=== PATIENT | female | born 1935 | race Caucasian/White ===

== ENCOUNTER 2016-05-03 09:19 | Inpatient (IN) | payer OTHER ==
[~2016-05-03] VITALS: Ht 162.6 cm; Wt 69.5 kg
--- NOTE | 2016-05-03 10:18 | DIAGNOSTIC IMAGING REPORT ---
PROCEDURE: XR CHEST 2 VIEW INDICATION: COUGH TECHNIQUE: PA and lateral views. COMPARISON: None. FINDINGS: Lungs are clear. Heart and mediastinum are normal. Thorax is normal. IMPRESSION: 1. Negative chest.
--- NOTE | 2016-05-03 13:14 | DIAGNOSTIC IMAGING REPORT ---
PROCEDURE: CTA THORAX WITH CONTRAST INDICATION: Shortness of breath, elevated D-dimer. Initial encounter. TECHNIQUE: 100 ml of Isovue 370 was injected intravenously and axial images were obtained of the entire thorax with 3D sagittal and coronal MIP reconstructions. COMPARISON: Chest x-ray 05/03/2016. FINDINGS: No evidence of pulmonary emboli. Mild emphysematous changes. Lungs are clear. Mild hilar adenopathy bilaterally. No effusion. Mild atherosclerosis of the aorta. No aortic dissection or aneurysm. Minor coronary atherosclerosis. Normal heart size. Hepatic steatosis. Mild bilateral hydronephrosis. Mild degenerative changes of the spine. IMPRESSION: 1. No evidence of pulmonary emboli 2. Mild emphysema 3. Hepatic steatosis 4. Mild bilateral hydronephrosis. Recommend CT scan abdomen pelvis without contrast 5. Results discussed with Dr. Moore
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
--- NOTE | 2016-05-03 15:14 | ED ORDER SUMMARY ---
..... Patient: AD KAN OrderSheet [facility] VisitID: [id number] [place] [address] 80y, F Registration Date/Time: 05/03/2016 ORDER SHEET Weight: 65.7 kg (stated) Allergies: No Known Drug Allergy GENERAL ORDERS: Chest 2V Urgent (09:47 05/03/2016 PHutchinson DO) (Ack 9:54 RKaruga) (10:13 LWhalen R.N.) Refrigeration Engineering Teacher (Continuous) (:05/03/2016 PHutchinson DO) (10:13 LWhalen R.N.) UA-Culture if indicated Urgent (:05/03/2016 PHutchinson DO) (Ack 9:54 RKaruga) (10:36 LWhalen R.N.) Cardiac Panel Stat (:05/03/2016 PHutchinson DO) (Ack 9:54 RKaruga) (12:14 LSullivan R.N.) BNP Urgent (:05/03/2016 PHutchinson DO) (Ack 9:54 RKaruga) (12:14 LSullivan R.N.) D-Dimer Urgent (:05/03/2016 PHutchinson DO) (Ack 9:54 RKaruga) (12:14 LSullivan R.N.) Amylase Urgent (:05/03/2016 PHutchinson DO) (Ack 9:54 RKaruga) (12:14 LSullivan R.N.) PT with INR Urgent (:48 05/03/2016 PHutchinson DO) (Ack 9:54 RKaruga) (12:14 LSullivan R.N.) TSH Urgent (:05/03/2016 PHutchinson DO) (Ack 9:54 RKaruga) (12:14 LSullivan R.N.) Oxygen (2 L/min) (NC) (09:48 05/03/2016 PHutchinson DO) (10:13 LWhalen R.N.) Pulse oximeter (:48 05/03/2016 PHutchinson DO) (10:13 LWhalen R.N.) EKG - ER Stat (09:48 05/03/2016 PHutchinson DO) (Ack 10:00 RKaruga) (10:13 LWhalen R.N.) Vitals (09:48 05/03/2016 PHutchinson DO) (10:13 LWhalen R.N.) Old Records (from [facility] - visits 2 days ago) (09:48 05/03/2016 PHutchinson DO) (Ack 9:54 RKaruga) PCT (Procalcitonin) Urgent (09:50 05/03/2016 PHutchinson DO) ([facility]ck 9:54 [facility]) (12:14 LSullivan R.N.) Lactate, Serum Urgent (09:50 05/03/2016 PHutchinson DO) (Ack 9:54 RKaruga) (12:14 LSullivan R.N.) CTA Thorax w Cont (No) (N/A) (elevated d-dimer) Urgent (11:02 05/03/2016 PHutchinson DO) ([facility]ck 11:[facility] (12:38 [facility]) CT Abd/Pel wo Cont Urgent (13:49 05/03/2016 PHutchinson DO) (Ack 13:53 [facility]) (16:26 MCabell) MEDICATION ORDERS: IV FLUIDS: IV NS : initial bolus 500 mL (1000 mL/hr), then 250 mL/hr for X4 (NOW) (09:47 05/03/2016 PHutchinson DO) (10:37 LWhalen R.N.) Benadryl IV 12.5 mg (NOW) (09:48 05/03/2016 PHutchinson DO) (10:37 LWhalen R.N.) Solu-MEDROL IV 125 mg (NOW) (09:48 05/03/2016 PHutchinson DO) (10:38 LWhalen R.N.) Levaquin IV 500 mg/100mL (NOW) (15:17 05/03/2016 PHutchinson DO) (Cancelled: Other15:18 PHutchinson DO) Levaquin IV 500 mg/100mL (NOW) (15:18 05/03/2016 PHutchinson DO) (15:35 Malena FarrarNBecky) Flagyl IV 1 g (NOW) (16:50 05/03/2016 Carroll KONG) (18:33 Freddie Navarro) ORDER SHEET NOTES: [Electronically signed by Aj Landon R.N. (19:16 05/03/2016)] [Electronically signed by Jez Moore DO (22:17 05/03/2016)] [Electronically locked/signed by Aj Landon R.N. (19:16 05/03/2016)]
--- NOTE | 2016-05-03 15:14 | ED CLINICAL REPORT ---
Clinical Report - Physicians/Mid Levels [facility] [address] [place] [address] 05/03/2016 9:22 Patient: AD KAN Time Seen: 09:40. Arrived- By private vehicle. Historian- patient. HISTORY OF PRESENT ILLNESS Chief Complaint: WEAKNESS FACIAL AND HAND SWELLING. This started last night and is still present. It was gradual in onset and has been waxing/waning. At its maximum, severity described as moderate. When seen in the E.D., severity described as mild. Modifying factors- worsened by deep breaths. Relieved by rest. No headache or muscle aches. She has had fatigue and generalized weakness. No decreased urine output. (Was seen at [facility] and was transferred to [facility] for r/o sepsis. Patient was sent home from ER with diagnosis of a bladder infection. Has been taking the Cephalexin was started on the 05/01 and patient states went to bed last night and felt swelling of hands and feet and throat. States when she woke up she took a benadryl and is feeling a little bit better.). She has had fever (before antibiotics). She has had weakness.). Similar symptoms previously: Recent medical care: The patient was seen recently at another facility in the emergency department and a clinic. ( Pt seen at [facility] and then transferred to [facility] - pt was noted to have UTI, but no indication of sepsis). REVIEW OF SYSTEMS No fever, sore throat, sinus drainage, nasal congestion or difficulty breathing. No chest pain, abdominal pain, nausea, vomiting or diarrhea. No black stools, bloody stools, skin rash, back pain or calf pain. No headache. The patient has had a mild nonproductive cough. She has had difficulty with urination, along with urgency and frequency. No burning or pain with urination. No difficulty with ambulation. She has had depression (recent loss of her ). All systems otherwise negative, except as recorded above. PAST HISTORY PROBLEMS: Asthma. High blood pressure. Elevated Cholesterol. Diverticulitis. DVT - Deep Venous Thrombosis. GERD. SURGERIES: Back Surgery. Hemorrhoidectomy. Shoulder Surgery. SOCIAL HISTORY Former smoker. Occasional alcohol use. No drug use. Residence: [place], [place] and [place], [place] Visiting locally. She lives with a family member. ADDITIONAL NOTES The nursing notes have been reviewed. PHYSICAL EXAM Vital Signs: 05/03/2016 09:37 BP: 163/85. HR: 111. RR: 18. O2 saturation: 98%. Temp: 97.6 F. Appearance: Alert. No acute distress. Eyes: Eyes normal inspection. No scleral icterus or pale conjunctivae. ENT: Pharynx normal. No pharyngeal erythema or tonsillar exudate. The mucous membranes are not dry. Neck: Normal inspection. Neck supple. No JVD. CVS: Normal heart rate and rhythm. Heart sounds normal. Pulses normal. Respiratory: No respiratory distress. Breath sounds normal. Abdomen: No visible injury. Soft and nontender. Back: Normal inspection. Skin: Skin warm and dry. Normal skin color. Normal skin turgor. Extremities: Extremities exhibit normal ROM. Neuro: Oriented X 3. No motor deficit. LABS, X-RAYS, AND EKG EKG: EKG time: (10:19). Normal sinus rhythm. Rate: 75. Normal P waves. Normal JOSLYN. Normal QRS complex. Normal axis. Normal ST and T waves. The study has been interpreted contemporaneously by me. The EKG appears to be a good tracing. Rhythm Strip #1: Normal sinus rhythm. Regular rhythm. Narrow QRS complexes. No ectopy. Chest X-ray: No acute disease. Normal lung markings present. Normal heart size. Mediastinum normal. Great vessels normal. No infiltrate. Views: PA and lateral. Technique: good. The X-rays were interpreted contemporaneously by me. Abdominal CT: IMPRESSION: 1. Central pelvic inflammation, small amount of extraluminal gas, and small amount of free intraperitoneal hemorrhage. This appears to be causing high-grade obstruction of the right distal ureter and partial obstruction of the left. This process could be secondary to perforated, bleeding chronic diverticulosis or neoplasm. Retroperitoneal fibrosis, sclerosing mesenteritis is less likely given hemorrhage and perforation of hollow viscus. Either CT with IV and oral contrast, and/or surgical consult is recommended. 2. Hysterectomy. 3. Hepatic steatosis. Study type: abdomen and pelvis. Abdominal CT performed without contrast. The study was independently viewed by me, interpreted by the radiologist and discussed with the radiologist. Laboratory Tests: UA-Culture if indicated: (MUSTAPHA: 05/03/2016 10:30) ( [facility] 05/03/2016 10:52) Final results Test Result Flag Units (Reference) URINE COLOR YELLOW URINE APPEARANCE CLEAR URINE GLUCOSE NEGATIVE (NEGATIVE) URINE BILIRUBIN NEGATIVE (NEGATIVE) URINE KETONE NEGATIVE (NEGATIVE) URINE SPECIFIC GRAVITY <= 1.005 L (1.010-1.030) URINE PH 6.0 (5.0-8.0) URINE PROTEIN NEGATIVE (NEGATIVE) URINE UROBILINOGEN 0.2 EU/dL (0.2-1.0) URINE NITRITE NEGATIVE (NEGATIVE) URINE BLOOD NEGATIVE (NEGATIVE) URINE LEUK ESTERASE POSITIVE (NEGATIVE) URINE RBC NONE SEEN rbc/hpf (0-1) URINE WBC 1-3 wbc/hpf (0-1) URINE EPITHELIAL CELLS 3-5 EPI/hpf (0-5) URINE BACTERIA TRACE (<1+) (NONE SEEN) URINE COMMENT CULTURE INDICATED 1mL SPECIMENURINE CULTURES ARE SET-UP BASED ON THE FOLLOWING CRITERIA:POSITIVE NITRITEPOSITIVE LEUKOCYTE ESTERASEGREATER THAN 10 WHITE BLOOD CELLSMODERATE (2+) OR GREATER BACTERIA CBC w Diff: (MUSTAPHA: 05/03/2016 10:25) ( [facility] 05/03/2016 10:40) Final results Test Result Flag Units (Reference) WHITE BLOOD COUNT 9.4 K/uL (4.5-11.5) RED BLOOD COUNT 3.37 L M/uL (4.00-5.20) HEMOGLOBIN 10.0 L gm/dL (12.0-16.0) HEMATOCRIT 30.5 L % (36.0-46.0) MEAN CELL VOLUME 91 fL (80-100) MEAN CORPUSCULAR HGB 30 pg (26-34) MEAN CORPUSCULAR HGB CONC 33 g/dL (31-37) RED CELL DISTRIBUTION WIDTH 15.7 H % (11.6-14.8) PLATELET COUNT 425 H K/uL (150-400) NEUTROPHIL % 82.6 H % (50-75) LYMPH % 11.3 L % (25-40) MONO % 5.1 % (3-14) EOSINOPHIL % 0.7 % (0-4) BASOPHIL % 0.3 % (0-2) PT with INR: (MUSTAPHA: 05/03/2016 10:25) ( [facility] 05/03/2016 10:42) Final results Test Result Flag Units (Reference) INR 1.0 (0.8-1.2) Low Intensity Therapy: INR 1.5-2.0 PT range 18.5-23.1Mod.Intensity Therapy: INR 2.0-3.0 PT range 23.1-31.5High Intensity Therapy: INR 2.5-3.5 PT range 27.4-35.5High Intensity Therapy 2: INR 3.0-4.0 PT range 31.5-39.3 D-DIMER QUANTITATIVE 2.20 H ug/mLFEU (0.27-0.52) The primary value of this quantitative assay relates toits negative predictive value (i.e. exclusion) of pulmonaryembolism/deep vein thrombosis/DIC.Elevated levels of d-dimer may also occur with:, age, cancer, inflammation, liver disease,post-op, infection, hematoma, coronary disease, peripheralarteriopathy, bleeding disorders and thrombolytic treatment.Results should be correlated with other clinical andradiological data.Testing Methodology: Latex Immunoassay Lactate, Serum: (MUSTAPHA: 05/03/2016 10:25) ( [facility] 05/03/2016 11:29) Final results Test Result Flag Units (Reference) LACTIC ACID 1.1 mmol/L (0.4-2.0) [id number]: (MUSTAPHA: 05/03/2016 10:25) ( [facility] 05/03/2016 11:14) Final results Test Result Flag Units (Reference) PROCALCITONIN <0.5 ng/mL (0-0.5) PCT Concentration: Interpretation : Risk/option for action PCT <=0.5 ng/mL : Systemic : Low risk forinfection(sepsis): progression to severeis not likely. : systemic infection.Local bacterial : CAUTION-PCT levelsinfection is : below 0.5 ng/mL do notpossible. : exclude an infection,because localizedinfections (withoutsystemic signs) may beassociated with suchlow levels. If PCT ismeasured very earlyafter a bacterialchallenge (usually <6hours), these valuesmay still be low. Inthis case PCT shouldbe re-assessed 6-24hours later. PCT >0.5 and : Systemic infection: Moderate risk for<= 2 ng/mL : (sepsis) is : progression to severepossible, but : systemic infection.other conditions : The patient should beare known to : closely monitoredelevate PCT. : both clinically andby re-assessing PCTwithin 6-24 hours. PCT > 2 ng/mL : Systemic infection: High risk for(sepsis) is likely: progression to severeunless other : systemic infection.causes are known. : PCT >= 10 ng/mL : Important systemic: High likelihood ofinflammatory : severe sepsis orresponse, almost : septic shock.exclusively due to:severe bacterial :sepsis or septic :shock. : BNP: (MUSTAPHA: 05/03/2016 10:25) ( Msg[facility]cvd 05/03/2016 10:55) Final results Test Result Flag Units (Reference) B-TYPE NATRIURETIC PEPTIDE 481 H pg/ml (5-100) CHEM 13 PANEL: (MUSTAPHA: 05/03/2016 10:25) ( MsgRcvd 05/03/2016 11:07) Final results Test Result Flag Units (Reference) GLUCOSE 115 H mg/dL (70-110) BUN 17 mg/dL (7-18) CREATININE 1.0 mg/dL (0.6-1.3) Estimated GFR 56.99 mL/min Estimated GFR- >60 mL/min Note: Persistent reduction over 3 months in eGFR<60 mL/min/1.73 m2 defines CKD. Patients with eGFR values>=60 mL/min/1.73 m2 may also have CKD if evidence ofpersistent proteinuria. Additional information may be foundat www.kidney.org. SODIUM 142 mmol/L (136-145) POTASSIUM 3.7 mmol/L (3.5-5.1) CHLORIDE 107 mmol/L (98-107) CARBON DIOXIDE 27 mmol/L (21-32) CALCIUM 8.7 mg/dL (8.5-10.1) TOTAL PROTEIN 6.9 g/dL (6.4-8.2) ALBUMIN 2.1 L g/dL (3.3-5.0) BILIRUBIN, TOTAL 0.3 mg/dL (0.0-1.0) ALKALINE PHOSPHATASE 108 U/L (46-116) AST (SGOT) 23 U/L (15-37) ALT (SGPT) 20 U/L (12-78) CPK 41 U/L (24-260) AMYLASE 32 U/L (25-115) TROPONIN I <0.05 ng/mL (0.00-1.5) TROPONIN REFERENCE RANGE:<0.1 NEGATIVE0.1-1.5 INDETERMINANT>1.5 POSITIVE THYROID STIMULATING HORMONE 1.617 uIU/mL (0.30-3.74) MAGNESIUM 2.1 mg/dL (1.8-2.4) . Pulse Oximetry: 05/03/2016 09:37 O2 saturation: 98%. (FIO2 - room air). Interpretation: normal. PROGRESS AND PROCEDURES Course of Care: Normal Saline 1 liter IVPB given. Benadryl 12.5 mg IVP given. Levofloxacin 500mg IVPB given. Solu-Medrol 125 mg IVP given. Flagyl 1gm IVPB given. Patient is stable. Physical exam findings are improved. Symptoms better. Discussed case with health care provider ([employer]). Reviewed test results. Agreed upon treatment plan and decision to admit. Health care provider will see patient in ED. Discussed case with health care provider (Ben call placed 16:54). Reviewed test results. Agreed upon treatment plan. Patient/family counseled. Old ED and clinic records reviewed. Transition orders written. Disposition: Admitted to Acute Care. Condition: stable, guarded and improved. CLINICAL IMPRESSION Occult GI bleed. No hematemesis, hematochezia, melena or hypotension. Acute diverticulitis of the colon with perforation, bleeding and obstruction. Essential hypertension. Moderate anemia. Possible acute urinary tract infection with cystitis. Moderate to high grade ureteral obstruction bilaterally. CHF - chronic. INSTRUCTIONS Your Current Medications: CONTINUE TAKING THE FOLLOWING MEDICATIONS: Albuterol Sulfate Inhalation. Benadryl Allergy Oral. Calcium & Magnesium Carbonates Oral. Cephalexin Oral. Lipitor Oral. Magnesium Chloride Oral. Melatonin Oral. NexIUM Oral. Vit D-Vit E-Safflower Oil External. Follow-up: Screening today revealed the patient's blood pressure to be in the hypertensive range. The patient was admitted and blood pressure will be managed during the admission. (Electronically signed by Jez Moore DO 05/03/2016 22:17)
--- NOTE | 2016-05-03 15:14 | ED ORDER SUMMARY ---
..... Patient: AD KAN OrderSheet [facility] VisitID: [id number] [place] [address] 80y, F Registration Date/Time: 05/03/2016 ORDER SHEET Weight: 65.7 kg (stated) Allergies: No Known Drug Allergy GENERAL ORDERS: Chest 2V Urgent (09:47 05/03/2016 PHutchinson DO) (Ack 9:54 RKaruga) (10:13 LWhalen R.N.) Stream Control Officer (Continuous) (:05/03/2016 PHutchinson DO) (10:13 LWhalen R.N.) UA-Culture if indicated Urgent (:05/03/2016 PHutchinson DO) (Ack 9:54 RKaruga) (10:36 LWhalen R.N.) Cardiac Panel Stat (:05/03/2016 PHutchinson DO) (Ack 9:54 RKaruga) (12:14 LSullivan R.N.) BNP Urgent (:05/03/2016 PHutchinson DO) (Ack 9:54 RKaruga) (12:14 LSullivan R.N.) D-Dimer Urgent (:05/03/2016 PHutchinson DO) (Ack 9:54 RKaruga) (12:14 LSullivan R.N.) Amylase Urgent (:05/03/2016 PHutchinson DO) (Ack 9:54 RKaruga) (12:14 LSullivan R.N.) PT with INR Urgent (:48 05/03/2016 PHutchinson DO) (Ack 9:54 RKaruga) (12:14 LSullivan R.N.) TSH Urgent (:05/03/2016 PHutchinson DO) (Ack 9:54 RKaruga) (12:14 LSullivan R.N.) Oxygen (2 L/min) (NC) (09:48 05/03/2016 PHutchinson DO) (10:13 LWhalen R.N.) Pulse oximeter (:48 05/03/2016 PHutchinson DO) (10:13 LWhalen R.N.) EKG - ER Stat (09:48 05/03/2016 PHutchinson DO) (Ack 10:00 RKaruga) (10:13 LWhalen R.N.) Vitals (09:48 05/03/2016 PHutchinson DO) (10:13 LWhalen R.N.) Old Records (from [facility] - visits 2 days ago) (09:48 05/03/2016 PHutchinson DO) (Ack 9:54 RKaruga) PCT (Procalcitonin) Urgent (09:50 05/03/2016 PHutchinson DO) ([facility]ck 9:54 [facility]) (12:14 LSullivan R.N.) Lactate, Serum Urgent (09:50 05/03/2016 PHutchinson DO) (Ack 9:54 RKaruga) (12:14 LSullivan R.N.) CTA Thorax w Cont (No) (N/A) (elevated d-dimer) Urgent (11:02 05/03/2016 PHutchinson DO) (Ack 11:06 [facility]) (12:38 [facility] CT Abd/Pel wo Cont Urgent (13:49 05/03/2016 PHutchinson DO) (Ack 13:53 [facility]) (16:26 MCabell) MEDICATION ORDERS: IV FLUIDS: IV NS : initial bolus 500 mL (1000 mL/hr), then 250 mL/hr for X4 (NOW) (09:47 05/03/2016 PHutchinson DO) (10:37 LWhalen R.N.) Benadryl IV 12.5 mg (NOW) (09:48 05/03/2016 PHutchinson DO) (10:37 LWhalen R.N.) Solu-MEDROL IV 125 mg (NOW) (09:48 05/03/2016 PHutchinson DO) (10:38 LWhalen R.N.) Levaquin IV 500 mg/100mL (NOW) (15:17 05/03/2016 PHutchinson DO) (Cancelled: Other15:18 PHutchinson DO) Levaquin IV 500 mg/100mL (NOW) (15:18 05/03/2016 PHutchinson DO) (15:35 Malena FarrarNBecky) Flagyl IV 1 g (NOW) (16:50 05/03/2016 Carroll KONG) (18:33 Freddie Navarro) ORDER SHEET NOTES: [Electronically signed by Aj Landon R.N. (19:16 05/03/2016)] [Electronically signed by Jez Moore DO (22:17 05/03/2016)] [Electronically locked/signed by Aj Landon R.N. (19:16 05/03/2016)]
--- NOTE | 2016-05-03 15:14 | ED CLINICAL REPORT ---
Clinical Report - Physicians/Mid Levels [facility] [address] [place] [address] 05/03/2016 9:22 Patient: AD KAN Time Seen: 09:40. Arrived- By private vehicle. Historian- patient. HISTORY OF PRESENT ILLNESS Chief Complaint: WEAKNESS FACIAL AND HAND SWELLING. This started last night and is still present. It was gradual in onset and has been waxing/waning. At its maximum, severity described as moderate. When seen in the E.D., severity described as mild. Modifying factors- worsened by deep breaths. Relieved by rest. No headache or muscle aches. She has had fatigue and generalized weakness. No decreased urine output. (Was seen at [facility] and was transferred to [facility] for r/o sepsis. Patient was sent home from ER with diagnosis of a bladder infection. Has been taking the Cephalexin was started on the 05/01 and patient states went to bed last night and felt swelling of hands and feet and throat. States when she woke up she took a benadryl and is feeling a little bit better.). She has had fever (before antibiotics). She has had weakness.). Similar symptoms previously: Recent medical care: The patient was seen recently at another facility in the emergency department and a clinic. ( Pt seen at [facility] and then transferred to [facility] - pt was noted to have UTI, but no indication of sepsis). REVIEW OF SYSTEMS No fever, sore throat, sinus drainage, nasal congestion or difficulty breathing. No chest pain, abdominal pain, nausea, vomiting or diarrhea. No black stools, bloody stools, skin rash, back pain or calf pain. No headache. The patient has had a mild nonproductive cough. She has had difficulty with urination, along with urgency and frequency. No burning or pain with urination. No difficulty with ambulation. She has had depression (recent loss of her ). All systems otherwise negative, except as recorded above. PAST HISTORY PROBLEMS: Asthma. High blood pressure. Elevated Cholesterol. Diverticulitis. DVT - Deep Venous Thrombosis. GERD. SURGERIES: Back Surgery. Hemorrhoidectomy. Shoulder Surgery. SOCIAL HISTORY Former smoker. Occasional alcohol use. No drug use. Residence: [place], [place] and [place], [place] Visiting locally. She lives with a family member. ADDITIONAL NOTES The nursing notes have been reviewed. PHYSICAL EXAM Vital Signs: 05/03/2016 09:37 BP: 163/85. HR: 111. RR: 18. O2 saturation: 98%. Temp: 97.6 F. Appearance: Alert. No acute distress. Eyes: Eyes normal inspection. No scleral icterus or pale conjunctivae. ENT: Pharynx normal. No pharyngeal erythema or tonsillar exudate. The mucous membranes are not dry. Neck: Normal inspection. Neck supple. No JVD. CVS: Normal heart rate and rhythm. Heart sounds normal. Pulses normal. Respiratory: No respiratory distress. Breath sounds normal. Abdomen: No visible injury. Soft and nontender. Back: Normal inspection. Skin: Skin warm and dry. Normal skin color. Normal skin turgor. Extremities: Extremities exhibit normal ROM. Neuro: Oriented X 3. No motor deficit. LABS, X-RAYS, AND EKG EKG: EKG time: (10:19). Normal sinus rhythm. Rate: 75. Normal P waves. Normal JOSLYN. Normal QRS complex. Normal axis. Normal ST and T waves. The study has been interpreted contemporaneously by me. The EKG appears to be a good tracing. Rhythm Strip #1: Normal sinus rhythm. Regular rhythm. Narrow QRS complexes. No ectopy. Chest X-ray: No acute disease. Normal lung markings present. Normal heart size. Mediastinum normal. Great vessels normal. No infiltrate. Views: PA and lateral. Technique: good. The X-rays were interpreted contemporaneously by me. Abdominal CT: IMPRESSION: 1. Central pelvic inflammation, small amount of extraluminal gas, and small amount of free intraperitoneal hemorrhage. This appears to be causing high-grade obstruction of the right distal ureter and partial obstruction of the left. This process could be secondary to perforated, bleeding chronic diverticulosis or neoplasm. Retroperitoneal fibrosis, sclerosing mesenteritis is less likely given hemorrhage and perforation of hollow viscus. Either CT with IV and oral contrast, and/or surgical consult is recommended. 2. Hysterectomy. 3. Hepatic steatosis. Study type: abdomen and pelvis. Abdominal CT performed without contrast. The study was independently viewed by me, interpreted by the radiologist and discussed with the radiologist. Laboratory Tests: UA-Culture if indicated: (MUSTAPHA: 05/03/2016 10:30) ( [facility] 10[facility]52) Final results Test Result Flag Units (Reference) URINE COLOR YELLOW URINE APPEARANCE CLEAR URINE GLUCOSE NEGATIVE (NEGATIVE) URINE BILIRUBIN NEGATIVE (NEGATIVE) URINE KETONE NEGATIVE (NEGATIVE) URINE SPECIFIC GRAVITY <= 1.005 L (1.010-1.030) URINE PH 6.0 (5.0-8.0) URINE PROTEIN NEGATIVE (NEGATIVE) URINE UROBILINOGEN 0.2 EU/dL (0.2-1.0) URINE NITRITE NEGATIVE (NEGATIVE) URINE BLOOD NEGATIVE (NEGATIVE) URINE LEUK ESTERASE POSITIVE (NEGATIVE) URINE RBC NONE SEEN rbc/hpf (0-1) URINE WBC 1-3 wbc/hpf (0-1) URINE EPITHELIAL CELLS 3-5 EPI/hpf (0-5) URINE BACTERIA TRACE (<1+) (NONE SEEN) URINE COMMENT CULTURE INDICATED 1mL SPECIMENURINE CULTURES ARE SET-UP BASED ON THE FOLLOWING CRITERIA:POSITIVE NITRITEPOSITIVE LEUKOCYTE ESTERASEGREATER THAN 10 WHITE BLOOD CELLSMODERATE (2+) OR GREATER BACTERIA CBC w Diff: (MUSTAPHA: 05/03/2016 10:25) ( [facility]03[facility] 10:40) Final results Test Result Flag Units (Reference) WHITE BLOOD COUNT 9.4 K/uL (4.5-11.5) RED BLOOD COUNT 3.37 L M/uL (4.00-5.20) HEMOGLOBIN 10.0 L gm/dL (12.0-16.0) HEMATOCRIT 30.5 L % (36.0-46.0) MEAN CELL VOLUME 91 fL (80-100) MEAN CORPUSCULAR HGB 30 pg (26-34) MEAN CORPUSCULAR HGB CONC 33 g/dL (31-37) RED CELL DISTRIBUTION WIDTH 15.7 H % (11.6-14.8) PLATELET COUNT 425 H K/uL (150-400) NEUTROPHIL % 82.6 H % (50-75) LYMPH % 11.3 L % (25-40) MONO % 5.1 % (3-14) EOSINOPHIL % 0.7 % (0-4) BASOPHIL % 0.3 % (0-2) PT with INR: (MUSTAPHA: 05/03/2016 10:25) ( [facility] 05/03/2016 10:42) Final results Test Result Flag Units (Reference) INR 1.0 (0.8-1.2) Low Intensity Therapy: INR 1.5-2.0 PT range 18.5-23.1Mod.Intensity Therapy: INR 2.0-3.0 PT range 23.1-31.5High Intensity Therapy: INR 2.5-3.5 PT range 27.4-35.5High Intensity Therapy 2: INR 3.0-4.0 PT range 31.5-39.3 D-DIMER QUANTITATIVE 2.20 H ug/mLFEU (0.27-0.52) The primary value of this quantitative assay relates toits negative predictive value (i.e. exclusion) of pulmonaryembolism/deep vein thrombosis/DIC.Elevated levels of d-dimer may also occur with:, age, cancer, inflammation, liver disease,post-op, infection, hematoma, coronary disease, peripheralarteriopathy, bleeding disorders and thrombolytic treatment.Results should be correlated with other clinical andradiological data.Testing Methodology: Latex Immunoassay Lactate, Serum: (MUSTAPHA: 05/03/2016 10:25) ( [facility] 05/03/2016 11:29) Final results Test Result Flag Units (Reference) LACTIC ACID 1.1 mmol/L (0.4-2.0) [id number]: (MUSTAPHA: 05/03/2016 10:25) ( [facility] 05/03/2016 11:14) Final results Test Result Flag Units (Reference) PROCALCITONIN <0.5 ng/mL (0-0.5) PCT Concentration: Interpretation : Risk/option for action PCT <=0.5 ng/mL : Systemic : Low risk forinfection(sepsis): progression to severeis not likely. : systemic infection.Local bacterial : CAUTION-PCT levelsinfection is : below 0.5 ng/mL do notpossible. : exclude an infection,because localizedinfections (withoutsystemic signs) may beassociated with suchlow levels. If PCT ismeasured very earlyafter a bacterialchallenge (usually <6hours), these valuesmay still be low. Inthis case PCT shouldbe re-assessed 6-24hours later. PCT >0.5 and : Systemic infection: Moderate risk for<= 2 ng/mL : (sepsis) is : progression to severepossible, but : systemic infection.other conditions : The patient should beare known to : closely monitoredelevate PCT. : both clinically andby re-assessing PCTwithin 6-24 hours. PCT > 2 ng/mL : Systemic infection: High risk for(sepsis) is likely: progression to severeunless other : systemic infection.causes are known. : PCT >= 10 ng/mL : Important systemic: High likelihood ofinflammatory : severe sepsis orresponse, almost : septic shock.exclusively due to:severe bacterial :sepsis or septic :shock. : BNP: (MUSTAPHA: 05/03/2016 10:25) ( MsgRcvd 05/03/2016 10:55) Final results Test Result Flag Units (Reference) B-TYPE NATRIURETIC PEPTIDE 481 H pg/ml (5-100) CHEM 13 PANEL: (MUSTAPHA: 05/03/2016 10:25) ( MsgRcvd 05/03/2016 11:07) Final results Test Result Flag Units (Reference) GLUCOSE 115 H mg/dL (70-110) BUN 17 mg/dL (7-18) CREATININE 1.0 mg/dL (0.6-1.3) Estimated GFR 56.99 mL/min Estimated GFR- >60 mL/min Note: Persistent reduction over 3 months in eGFR<60 mL/min/1.73 m2 defines CKD. Patients with eGFR values>=60 mL/min/1.73 m2 may also have CKD if evidence ofpersistent proteinuria. Additional information may be foundat www.kidney.org. SODIUM 142 mmol/L (136-145) POTASSIUM 3.7 mmol/L (3.5-5.1) CHLORIDE 107 mmol/L (98-107) CARBON DIOXIDE 27 mmol/L (21-32) CALCIUM 8.7 mg/dL (8.5-10.1) TOTAL PROTEIN 6.9 g/dL (6.4-8.2) ALBUMIN 2.1 L g/dL (3.3-5.0) BILIRUBIN, TOTAL 0.3 mg/dL (0.0-1.0) ALKALINE PHOSPHATASE 108 U/L (46-116) AST (SGOT) 23 U/L (15-37) ALT (SGPT) 20 U/L (12-78) CPK 41 U/L (24-260) AMYLASE 32 U/L (25-115) TROPONIN I <0.05 ng/mL (0.00-1.5) TROPONIN REFERENCE RANGE:<0.1 NEGATIVE0.1-1.5 INDETERMINANT>1.5 POSITIVE THYROID STIMULATING HORMONE 1.617 uIU/mL (0.30-3.74) MAGNESIUM 2.1 mg/dL (1.8-2.4) . Pulse Oximetry: 05/03/2016 09:37 O2 saturation: 98%. (FIO2 - room air). Interpretation: normal. PROGRESS AND PROCEDURES Course of Care: Normal Saline 1 liter IVPB given. Benadryl 12.5 mg IVP given. Levofloxacin 500mg IVPB given. Solu-Medrol 125 mg IVP given. Flagyl 1gm IVPB given. Patient is stable. Physical exam findings are improved. Symptoms better. Discussed case with health care provider ([employer]). Reviewed test results. Agreed upon treatment plan and decision to admit. Health care provider will see patient in ED. Discussed case with health care provider (Ben call placed 16:54). Reviewed test results. Agreed upon treatment plan. Patient/family counseled. Old ED and clinic records reviewed. Transition orders written. Disposition: Admitted to Acute Care. Condition: stable, guarded and improved. CLINICAL IMPRESSION Occult GI bleed. No hematemesis, hematochezia, melena or hypotension. Acute diverticulitis of the colon with perforation, bleeding and obstruction. Essential hypertension. Moderate anemia. Possible acute urinary tract infection with cystitis. Moderate to high grade ureteral obstruction bilaterally. CHF - chronic. INSTRUCTIONS Your Current Medications: CONTINUE TAKING THE FOLLOWING MEDICATIONS: Albuterol Sulfate Inhalation. Benadryl Allergy Oral. Calcium & Magnesium Carbonates Oral. Cephalexin Oral. Lipitor Oral. Magnesium Chloride Oral. Melatonin Oral. NexIUM Oral. Vit D-Vit E-Safflower Oil External. Follow-up: Screening today revealed the patient's blood pressure to be in the hypertensive range. The patient was admitted and blood pressure will be managed during the admission. (Electronically signed by Jez Moore DO 05/03/2016 22:17)
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
--- NOTE | 2016-05-03 15:41 | DIAGNOSTIC IMAGING REPORT ---
PROCEDURE: CT ABDOMEN/PELVIS W/O CONTRAST INDICATION: ABNORMAL CTA THORAX WITH HYDRONEPHROSIS TECHNIQUE: Axial CT images were obtained through the abdomen and pelvis without IV contrast. Coronal and sagittal reformations were created. COMPARISON: CTA of the chest 05/03/2016 FINDINGS: Moderate diffuse hepatic hypodensity. Normal gallbladder. Normal adrenal glands, spleen, pancreas, and abdominal aortic caliber with moderate atherosclerosis. Stomach and upper bowel loops are within normal limits. Moderate to severe right hydronephrosis and moderate left hydronephrosis. Severe right hydroureter and moderate left hydroureter to the level of the pelvic inlet. There is a small amount of high density fluid adjacent to the tip of the liver consistent with blood. There is extensive sigmoid diverticulosis. In the central upper pelvis, there is an area approximately 10 cm of moderate inflammatory change as well as punctate foci of extraluminal gas (series 3 image 60). More caudally in the pelvis, there is high density fluid layering consistent with blood. The right distal ureter abruptly terminates just above and inflamed a segment of distal sigmoid/proximal rectum to the right of midline. This segment of bowel demonstrates diffuse luminal narrowing and moderate adjacent inflammation. The distal left ureter is seen coursing towards and into the bladder. The right distal ureter is not convincingly visualized. Urinary bladder is decompressed. Uterus is surgically absent. No visible pelvic adenopathy or suspicious mass. Degenerative changes in the right hip and lower lumbar spine. IMPRESSION: 1. Central pelvic inflammation, small amount of extraluminal gas, and small amount of free intraperitoneal hemorrhage. This appears to be causing high- grade obstruction of the right distal ureter and partial obstruction of the left. This process could be secondary to perforated, bleeding chronic diverticulosis or neoplasm. Retroperitoneal fibrosis, sclerosing mesenteritis is less likely given hemorrhage and perforation of hollow viscus. Either CT with IV and oral contrast, and/or surgical consult is recommended. 2. Hysterectomy. 3. Hepatic steatosis. 4. Discussed with Dr. Moore in the emergency room. All CT scans at this facility use dose modulation, iterative reconstruction, and/or weight-based dosing when appropriate to reduce radiation dose to as low as reasonably achievable.
[2016-05-03 18:54] VITALS: BP 135/92
--- NOTE | 2016-05-03 19:01 | History & Physical Report ---
Information Source Information Source: Self Reliability: Good History Chief Complaint generalized swelling and difficulty urinating History of Present Illness Patient is a 80 year old female with a pmh of hypertension, diverticulitis that is presenting with a vague feeling of general body swelling and malaise. Patient has been dealing with the recent of her , patient has been traveling back and forth from [place] to [place] to arrange for the . Patient during this time was under a great deal of stress and had difficulty urinating lately. Patient went to an urgent care center for possible UTI and was prescribed antibiotics. Patient took the antibiotics and the next day had feeling or pruritis and generalized swelling. Patient came to the ER under the impression she had an allergic reaction. Patient was evaluated in the ER and the patient had various tests done including a ct scan of the abdomen. Patient was found to have diverticulitis with micro perforations and blood in the pelvic recess. Patients diverticulitis was seen to be causing compression like symptoms on the patients bladder which in turn may be causing this patients bladder dysfunction. Patient will be admitted for diverticulitis. Patient History 1. Diverticulitis of intestine with perforation with bleeding 2. Anemia Social History Patient currently lives with her niece. Patient is retired, she does not smoke, drink or use illicit substances. Patient has a PCP in [facility] where she is from. Family History Family history was reviewed; no changes noted. Medications and Allergies Medications Home Medications Melatonin Atorvastatin Protonix Current Medications Sig/Darryl Start time Last Medication Dose Route Stop Time Status Admin Metronidazole/Sodium 100 ML 1730 05/04 1730 CAN Chloride IV 05/04 1800 Metronidazole/Sodium 100 ML Q8H 05/04 0800 AC 05/04 Chloride IV 1555 Pantoprazole Sodium 40 MG DAILY@0600 05/04 0600 AC 05/04 IV 0601 Lactobacillus 1 TAB TID 05/03 2200 AC 05/04 PO 1347 Ciprofloxacin 500 MG BID 05/03 2100 AC 05/04 PO 0958 Diphenhydramine HCl 25 MG QHS PRN 05/03 1945 AC 05/03 IV 2119 Acetaminophen 650 MG Q6H PRN 05/03 1900 AC PO Morphine Sulfate 1 MG Q4H PRN 05/03 1900 AC 05/04 IV 0637 Sodium Chloride 1,000 ML ASDIRECTED 05/03 1900 AC 05/04 IV 0913 Ondansetron HCl See Dose Q4H PRN 05/03 1700 AC Insts (1) IV Dose Instructions: (1)Ondansetron HCl: 4 - 8 MG Allergies Coded Allergies: Cephalexin (Mild, C/O FACE+HAND SWELLING AFTER PO CEPHALEXIN 04/201605/03/16) Review of Systems Constitutional Weakness, Malaise. Denies: Fever, Chills, Sweats, Other. Eyes Denies: Pain, Vision Change, Conjunctival Inflammation, Eyelid Inflammation, Redness, Other. ENT Denies: Ear Pain, Ear Discharge, Nose Pain, Nasal Discharge, Nasal Congestion, Mouth Pain, Mouth Swelling, Throat Pain, Throat Swelling, Other. Respiratory Denies: Cough, Dry, SOB w/exertion, Wheezing, Hemoptysis, Pleuritic Pain, Sputum , Other. Cardiovascular Denies: Chest Pain, Palpitations, Orthopnea, PND, Edema, Light-headedness, Other. Gastrointestinal Denies: Nausea, Vomiting, Abdominal Pain, Diarrhea, Constipation, Melena, Hematochezia, Other. Genitourinary Frequency, Retention. Denies: Dysuria, Incontinence, Hematuria, Other. Musculoskeletal Denies: Neck Pain, Shoulder Pain, Arm Pain, Back Pain, Hand Pain, Leg Pain, Foot Pain, Other. Skin Denies: Rash, Lesions, Jaundice, Bruising, Other. Neurological Denies: Weakness, Numbness, Incoordination, Change in speech, Confusion, Seizures, Other. Physical Exam Vital Signs / I&Os Vital Signs Date Time Temp Pulse Resp B/P Pulse O2 O2 Flow FiO2 Ox Delivery Rate 05/04 1420 97.9 79 16 148/67 100 Room Air 05/04 1015 97.5 73 20 148/65 98 Room Air 05/04 0925 Room Air 05/04 0701 97.9 81 21 142/56 97 Room Air 05/04 0243 97.9 75 16 143/66 96 05/03 2253 97.9 74 16 170/65 98 05/03 1854 98.6 91 18 135/92 95 I&O 05/03 0800 05/03 1600 05/04 0000 Intake Total 0 Output Total 500 Balance -500 General Appearance Alert, Oriented X3, No acute distress HEENT Atraumatic, EOMI, Moist mucous membranes Lungs Clear to auscultation, Normal air movement Neck No JVD, No masses, No thyromegaly, No lymphadenopathy, 2+ carotid pulse wo bruit Cardiovascular Regular rate and rhythm, Normal S1 and S2, No murmurs, gallops, rubs Abdomen Soft, No guarding, No rebound, No masses, No hepatosplenomegaly Extremities No edema, Normal pulses, No tenderness, Strength = upper ext's, Strength = lower ext's Skin No Breakdown, No Significant Lesions Neurological Normal speech, Normal tone, Sensation intact, Cranial nerves intact , Strength 5/5 x4 ext's, No lateralizing signs Psych/Mental Status Mood normal LAB Results Laboratory Tests 05/04 0535 Chemistry Plasma Sodium (136 - 145 mmol/L) 144 Plasma Potassium (3.5 - 5.1 mmol/L) 4.2 Plasma Chloride (98 - 107 mmol/L) 109 CO2 (Enzymatic) (21 - 32 mmol/L) 24 BUN (7 - 18 mg/dL) 12 Creatinine (0.6 - 1.3 mg/dL) 0.9 Est GFR ( Amer) (mL/min) >60 Est GFR (Non-Af Amer) (mL/min) >60 Glucose (70 - 110 mg/dL) 132 Plasma Calcium (8.5 - 10.1 mg/dL) 8.2 Plasma Magnesium (1.8 - 2.4 mg/dL) 2.0 Total Bilirubin (0.0 - 1.0 mg/dL) 0.2 AST (15 - 37 U/L) 24 ALT (12 - 78 U/L) 23 Alkaline Phosphatase (46 - 116 U/L) 104 Total Protein (6.4 - 8.2 g/dL) 6.3 Albumin (3.3 - 5.0 g/dL) 2.0 Lipase (73 - 393 U/L) 109 Hematology WBC (4.5 - 11.5 K/uL) 8.4 RBC (4.00 - 5.20 M/uL) 3.34 Hgb (12.0 - 16.0 gm/dL) 9.8 Hct (36.0 - 46.0 %) 29.9 MCV (80 - 100 fL) 89 MCH (26 - 34 pg) 29 RDW (11.6 - 14.8 %) 15.8 Neut % (Auto) (50 - 75 %) 83.0 Lymph % (Auto) (25 - 40 %) 13.7 Dunn % (Auto) (3 - 14 %) 3.1 Eos % (Auto) (0 - 4 %) 0 Baso % (Auto) (0 - 2 %) 0.2 Plt Count, EDTA (150 - 400 K/uL) 445 PUBS MCHC (31 - 37 g/dL) 33 Assessment and Plan Problem List 1. Diverticulitis of intestine with perforation with bleeding Plan - radiolopgical evidence of diverticulitis with micro perforations - free blood in the pelvic recess - compression of the bladder due to the inflammation - will keep patient npo - will provide liberal iv fluids - will start the patient on cipro and flagyl - will continue to monitor cbc and electrolytes 2. Anemia Plan - stable - will continue to trend - most likely secondary to bleeding diverticula
--- NOTE | 2016-05-03 20:09 | NUR ---
PT ARRIVED AROUND 1900 VIA [facility] FROM ED. NO C/O PAIN OR NAUSEA. NO SOB. PT IS A&OX3, LS CTA AND BT ACTIVE. +1 EDEMA ON BLE'S. AMBULATES W/ SBA. FAMILY AT BESIDE. RESTING W/ CALL LIGHT IN REACH.
--- NOTE | 2016-05-03 22:18 | ED MED RECONCILIATION SUMMARY ---
Patient: AD KAN Medication Reconciliation Report [facility] VisitID: [id number] [address] [place] [address] 80y, F Registration Date/Time: 05/03/2016 Weight: 65.7 kg Height/Length: 63 in. BMI: 25.7 ALLERGIES: No Known Drug Allergy The patient's Home Medications are listed below: CONTINUE TAKING THE FOLLOWING MEDICATIONS: Albuterol Sulfate Inhalation Benadryl Allergy Oral Calcium & Magnesium Carbonates Oral Cephalexin Oral Lipitor Oral Magnesium Chloride Oral Melatonin Oral NexIUM Oral Vit D-Vit E-Safflower Oil External The source(s) of the original Home Medication information: Not obtained. The following Medications were given to the patient in the Emergency Department: IV NS IV Fluids bolus 0, then 1000 mL/hr, administered: 05/03/2016 10:32:00 AM Benadryl [IVP] IVP 12.5 mg, administered: 05/03/2016 10:32:00 AM SOLU-MEDROL [IVP] IVP 125 mg, administered: 05/03/2016 10:38:00 AM Levaquin [IVPB] IVPB bolus 0, then 500 mg 100 mL/hr, administered: 05/03/2016 3:35:00 PM Flagyl [IVPB] IVPB bolus 0, then 500 mg 200 mL/hr, administered: 05/03/2016 6:30:00 PM The following Medications were prescribed to the patient: None.
--- NOTE | 2016-05-03 22:18 | ED MAR SUMMARY ---
..... Medication Administration Record [facility] [address] [facility] [place] [address] Patient: AD KAN Visit ID: [id number] 80y, F Weight: 65.7 kg Height/Length: 63 in BMI: 25.7 ALLERGIES: No Known Drug Allergy Start 10:32 05/03/2016 Aj Landon R.N., Stop 15:44 05/03/2016 Aj Landon R.N. Medication Administered: IV NS (SALINE), Dose: IV Fluids over 1 hour(s), Rate: 1000 mL/hr, Dispensed: 1000 mL bag, Site: #1 right forearm. Medication Ordered: IV NS : initial bolus 500 mL (1000 mL/hr), then 250 mL/hr for X4 (NOW). Given 10:32 05/03/2016 Aj Landon R.N. Medication Administered: BENADRYL [IVP] (DIPHENHYDRAMINE HCL), Dose: 12.5 mg IVP over 2 minute(s), Site: #1 right forearm. Medication Ordered: Benadryl IV 12.5 mg (NOW). Given 10:38 05/03/2016 Aj Landon R.N. Medication Administered: SOLU-MEDROL [IVP] (METHYLPREDNISOLONE SODIUM SUCC), Dose: 125 mg IVP over 2 minute(s), Site: #1 right forearm. Medication Ordered: Solu-MEDROL IV 125 mg (NOW). Start 15:35 05/03/2016 Aj Landon R.N., Stop 18:43 05/03/2016 Aj Landon R.N. Medication Administered: LEVAQUIN [IVPB] (LEVOFLOXACIN), Dose: 500 mg IVPB over 1 hour(s), Rate: 100 mL/hr, Dispensed: 100 mL bag, Site: #1 right forearm. Medication Ordered: Levaquin IV 500 mg/100mL (NOW). Start 18:30 05/03/2016 Vandana Hickey R.N., Continued Upon Transfer 18:39 05/03/2016 Aj Landon R.N. Medication Administered: FLAGYL [IVPB] (METRONIDAZOLE IN NACL), Dose: 500 mg IVPB over 30 minute(s), Rate: 200 mL/hr, Dispensed: 100 mL bag, Site: #1 right forearm. Medication Ordered: Flagyl IV 1 g (NOW).
--- NOTE | 2016-05-03 22:18 | ED MED RECONCILIATION SUMMARY ---
Patient: AD KAN Medication Reconciliation Report [facility] VisitID: [id number] [address] [place] [address] 80y, F Registration Date/Time: 05/03/2016 Weight: 65.7 kg Height/Length: 63 in. BMI: 25.7 ALLERGIES: No Known Drug Allergy The patient's Home Medications are listed below: CONTINUE TAKING THE FOLLOWING MEDICATIONS: Albuterol Sulfate Inhalation Benadryl Allergy Oral Calcium & Magnesium Carbonates Oral Cephalexin Oral Lipitor Oral Magnesium Chloride Oral Melatonin Oral NexIUM Oral Vit D-Vit E-Safflower Oil External The source(s) of the original Home Medication information: Not obtained. The following Medications were given to the patient in the Emergency Department: IV NS IV Fluids bolus 0, then 1000 mL/hr, administered: 05/03/2016 10:32:00 AM Benadryl [IVP] IVP 12.5 mg, administered: 05/03/2016 10:32:00 AM SOLU-MEDROL [IVP] IVP 125 mg, administered: 05/03/2016 10:38:00 AM Levaquin [IVPB] IVPB bolus 0, then 500 mg 100 mL/hr, administered: 05/03/2016 3:35:00 PM Flagyl [IVPB] IVPB bolus 0, then 500 mg 200 mL/hr, administered: 05/03/2016 6:30:00 PM The following Medications were prescribed to the patient: None.
--- NOTE | 2016-05-03 22:18 | ED MAR SUMMARY ---
..... Medication Administration Record [facility] [address] [facility] [place] [address] Patient: AD KAN Visit ID: [id number] 80y, F Weight: 65.7 kg Height/Length: 63 in BMI: 25.7 ALLERGIES: No Known Drug Allergy Start 10:32 05/03/2016 Aj Landon R.N., Stop 15:44 05/03/2016 Aj Landon R.N. Medication Administered: IV NS (SALINE), Dose: IV Fluids over 1 hour(s), Rate: 1000 mL/hr, Dispensed: 1000 mL bag, Site: #1 right forearm. Medication Ordered: IV NS : initial bolus 500 mL (1000 mL/hr), then 250 mL/hr for X4 (NOW). Given 10:32 05/03/2016 Aj Landon R.N. Medication Administered: BENADRYL [IVP] (DIPHENHYDRAMINE HCL), Dose: 12.5 mg IVP over 2 minute(s), Site: #1 right forearm. Medication Ordered: Benadryl IV 12.5 mg (NOW). Given 10:38 05/03/2016 Aj Landon R.N. Medication Administered: SOLU-MEDROL [IVP] (METHYLPREDNISOLONE SODIUM SUCC), Dose: 125 mg IVP over 2 minute(s), Site: #1 right forearm. Medication Ordered: Solu-MEDROL IV 125 mg (NOW). Start 15:35 05/03/2016 Aj Landon R.N., Stop 18:43 05/03/2016 Aj Landon R.N. Medication Administered: LEVAQUIN [IVPB] (LEVOFLOXACIN), Dose: 500 mg IVPB over 1 hour(s), Rate: 100 mL/hr, Dispensed: 100 mL bag, Site: #1 right forearm. Medication Ordered: Levaquin IV 500 mg/100mL (NOW). Start 18:30 05/03/2016 Vandana Hickey R.N., Continued Upon Transfer 18:39 05/03/2016 Aj Landon R.N. Medication Administered: FLAGYL [IVPB] (METRONIDAZOLE IN NACL), Dose: 500 mg IVPB over 30 minute(s), Rate: 200 mL/hr, Dispensed: 100 mL bag, Site: #1 right forearm. Medication Ordered: Flagyl IV 1 g (NOW).
--- NOTE | 2016-05-03 22:18 | ED DISCHARGE INSTRUCTIONS ---
Patient: AD KAN General Instructions [facility] VisitID: [id number] [place] [address] 80y, F Registration Date/Time: 05/03/2016 Occult GI bleed. No hematemesis, hematochezia, melena or hypotension. Acute diverticulitis of the colon with perforation, bleeding and obstruction. Essential hypertension. Moderate anemia. Moderate to high grade ureteral obstruction bilaterally. CHF - chronic. INSTRUCTIONS Your Current Medications: CONTINUE TAKING THE FOLLOWING MEDICATIONS: Albuterol Sulfate Inhalation. Benadryl Allergy Oral. Calcium & Magnesium Carbonates Oral. Cephalexin Oral. Lipitor Oral. Magnesium Chloride Oral. Melatonin Oral. NexIUM Oral. Vit D-Vit E-Safflower Oil External. Follow-up: Screening today revealed the patient's blood pressure to be in the hypertensive range. The patient was admitted and blood pressure will be managed during the admission. ADDITIONAL INFORMATION High Blood Pressure -- To Be Confirmed [No Tx] Your blood pressure was higher today than normal. Sometimes anxiety or pain can cause a temporary rise in blood pressure that later returns to normal. If your blood pressure is high on one measurement, this does not mean that you have hypertension (a chronic illness). However, you must have your blood pressure measured again within the next few days to find out if its still high. A normal blood pressure is 120/80 or less. The first (top) number is the "systolic" pressure. The second (bottom) number is the "diastolic" pressure. Hypertension exists when either the top number is 140 or higher, OR the bottom number is 90 or higher on repeated measurements. Blood pressure in the range of 120-140 (systolic) or 80-89 (diastolic) is considered "pre-hypertension". This means your are at risk for getting hypertension. You should have regular blood pressure checks to be sure your blood pressure is not rising. Home Care: Measure your blood pressure on 3 different days and write down the results. This can be done at your doctor's office or this facility. Some pharmacies and grocery stores offer automated blood pressure machines for your use. Follow Up: If your blood pressure is "high" (over 120/80) on 2 out of 3 days, you will need to follow up with your doctor for further evaluation and treatment. DO NOT PUT THIS OFF! Untreated high blood pressure increases the risk for heart attack, also known as acute myocardial infarction, or AMI, and stroke. It is a treatable condition. Get Prompt Medical Attention if any of the following occur: Chest pain or shortness of breath Severe headache Throbbing or rushing sound in the ears Nosebleed Sudden severe abdominal pain Extreme drowsiness, confusion or fainting Dizziness or vertigo (dizziness with spinning sensation) Weakness of an arm or leg or one side of the face Difficulty with speech or vision You have been given the following additional information: Hypertension, To Be Confirmed (Electronically signed by Jez Moore DO 05/03/2016 22:17)
[2016-05-03 22:53] VITALS: BP 170/65
[2016-05-04 02:43] VITALS: BP 143/66
[2016-05-04] MEDS ORDERED: PROAIR HFA IN (04:51)
[2016-05-04] MEDS ORDERED: BENADRYL ALLERG25 M1 PO (04:51)
[2016-05-04] MEDS ORDERED: TUMS500 MG (04:52)
[2016-05-04] MEDS ORDERED: MAG6464 MG PO (04:54)
[2016-05-04] MEDS ORDERED: LIPITOR10 MG PO (04:54)
[2016-05-04] MEDS ORDERED: NEXIUM2.5 MG (04:55)
[2016-05-04] MEDS ORDERED: MELATONIN CR3 MG (04:55)
[2016-05-04 07:01] VITALS: BP 142/56
--- NOTE | 2016-05-04 09:30 | NUR ---
RECEIVED PT UP IN THE CHAIR, AWAKE, ALERT, ORIENTED, COHERENT, COOPERATIVE. V/S TAKEN AND RECORDED. ASSESSMENT DONE. PT DENIES ANY PAIN, N/V AT THIS TIME. SEEN AND EXAMINED BY DR HOPKINS DURING ROUNDS. DUE MEDS GIVEN. PT HAVE HAVE 1/3 A CUP OF ICE OR WATER ONLY PER SHIFT. PT UDNERSTOOD. ENC PT TO AMBULATE.
[2016-05-04 10:15] VITALS: BP 148/65
[2016-05-04 14:20] VITALS: BP 148/67
--- NOTE | 2016-05-04 17:24 | Progress Note ---
Subjective General Patient seen and examined. Patient has normal bowel function at the moment. Patient otherwise has no complaints. Constitutional Denies: Fever, Chills, Sweats, Weakness, Malaise, Other. Eyes Denies: Pain, Vision Change, Conjunctival Inflammation, Eyelid Inflammation, Redness, Other. ENT Denies: Ear Pain, Ear Discharge, Nose Pain, Nasal Discharge, Nasal Congestion, Mouth Pain, Mouth Swelling, Throat Pain, Throat Swelling, Other. Cardiovascular Denies: Chest Pain, Palpitations, Orthopnea, PND, Edema, Light-headedness, Other. Gastrointestinal Denies: Nausea, Vomiting, Abdominal Pain, Diarrhea, Constipation, Melena, Hematochezia, Other. Genitourinary Denies: Dysuria, Frequency, Incontinence, Hematuria, Retention, Other. Musculoskeletal Denies: Neck Pain, Shoulder Pain, Arm Pain, Back Pain, Hand Pain, Leg Pain, Foot Pain, Other. Skin Denies: Rash, Lesions, Jaundice, Bruising, Other. Neurological Denies: Weakness, Numbness, Incoordination, Change in speech, Confusion, Seizures, Other. Physical Exam Vital Signs / I&Os Vital Signs Date Time Temp Pulse Resp B/P Pulse O2 O2 Flow FiO2 Ox Delivery Rate 05/04 1420 97.9 79 16 148/67 100 Room Air 05/04 1015 97.5 73 20 148/65 98 Room Air 05/04 0925 Room Air 05/04 0701 97.9 81 21 142/56 97 Room Air 05/04 0243 97.9 75 16 143/66 96 05/03 2253 97.9 74 16 170/65 98 05/03 1854 98.6 91 18 135/92 95 I&O 05/03 0800 05/03 1600 05/04 0000 Intake Total 0 Output Total 500 Balance -500 General Appearance Alert, Oriented X3, No acute distress HEENT Atraumatic, Moist mucous membranes Lungs Clear to auscultation, Normal air movement Neck Supple, No JVD, No masses Cardiovascular Normal S1 and S2, No murmurs, gallops, rubs Abdomen Soft, No guarding, No rebound, No masses, No hepatosplenomegaly, - some tenderness to lower quadrants Extremities No clubbing, No edema, Normal pulses Skin No Breakdown, No Significant Lesions Neurological Normal speech, Normal tone, Sensation intact, Cranial nerves intact , Strength 5/5 x4 ext's, No lateralizing signs Psych/Mental Status Mood normal LAB Results Laboratory Tests 05/04 0535 Chemistry Plasma Sodium (136 - 145 mmol/L) 144 Plasma Potassium (3.5 - 5.1 mmol/L) 4.2 Plasma Chloride (98 - 107 mmol/L) 109 CO2 (Enzymatic) (21 - 32 mmol/L) 24 BUN (7 - 18 mg/dL) 12 Creatinine (0.6 - 1.3 mg/dL) 0.9 Est GFR ( Amer) (mL/min) >60 Est GFR (Non-Af Amer) (mL/min) >60 Glucose (70 - 110 mg/dL) 132 Plasma Calcium (8.5 - 10.1 mg/dL) 8.2 Plasma Magnesium (1.8 - 2.4 mg/dL) 2.0 Total Bilirubin (0.0 - 1.0 mg/dL) 0.2 AST (15 - 37 U/L) 24 ALT (12 - 78 U/L) 23 Alkaline Phosphatase (46 - 116 U/L) 104 Total Protein (6.4 - 8.2 g/dL) 6.3 Albumin (3.3 - 5.0 g/dL) 2.0 Lipase (73 - 393 U/L) 109 Hematology WBC (4.5 - 11.5 K/uL) 8.4 RBC (4.00 - 5.20 M/uL) 3.34 Hgb (12.0 - 16.0 gm/dL) 9.8 Hct (36.0 - 46.0 %) 29.9 MCV (80 - 100 fL) 89 MCH (26 - 34 pg) 29 RDW (11.6 - 14.8 %) 15.8 Neut % (Auto) (50 - 75 %) 83.0 Lymph % (Auto) (25 - 40 %) 13.7 Richardson % (Auto) (3 - 14 %) 3.1 Eos % (Auto) (0 - 4 %) 0 Baso % (Auto) (0 - 2 %) 0.2 Plt Count, EDTA (150 - 400 K/uL) 445 PUBS MCHC (31 - 37 g/dL) 33 Assessment and Plan Problem List 1. Diverticulitis of intestine with perforation with bleeding Plan - will continue with antibiotics - will monitor cbc daily - will obtain surgical consult 2. Anemia Plan - no major drops in hgb - will continue to monitor - transfuse less than 7
[2016-05-04 19:50] VITALS: BP 132/62
[2016-05-04 22:34] VITALS: BP 148/74
[2016-05-05 03:07] VITALS: BP 152/63
[2016-05-05 06:19] VITALS: BP 176/95
--- NOTE | 2016-05-05 08:25 | NUR ---
RECEDIVED PT IN BED, AWAKE,AELRT, ORIENTED, COHERENT, COOPERATIVE. V/S TAKEN AND RECORDED. ASSESSMENT DONE. PT DENIES ANY PAIN, HEADACHE, NO NAUSEA AND VOM ITING AT THIS TIME. THEN ASSSITED PT UP TO THE BATHROOM PT DID MORNING, [place], ORAL CARE HERSELF. THEN PT SAT UP IN THE CHIAR. INSTRUC PT TO AMBULATE. 1/3 CUP OF ICE OR WATER ONLY PER SHIFT. PT UNBDERSTOOD.
[2016-05-05 10:46] VITALS: BP 178/84
--- NOTE | 2016-05-05 14:30 | NUR ---
BP IS 161/74. DENIES HEADACHE, CHEST PAIN AT THIS TIME. " I TAKE HCTZ AT HOME" PT STATES. DR DALEY NOTIFIED.
[2016-05-05 14:40] VITALS: BP 161/74
[2016-05-05] MEDS ORDERED: HYDROCHLOROTHIA25 MG PO (15:29)
--- NOTE | 2016-05-05 17:50 | Progress Note ---
Subjective General Patient seen and examined. Patient is dong well and able to tolerate a diet. Patient has no other complaints this morning. Constitutional Denies: Fever, Chills, Sweats, Weakness, Malaise, Other. Eyes Denies: Pain, Vision Change, Conjunctival Inflammation, Eyelid Inflammation, Redness, Other. Respiratory Denies: Cough, Dry, SOB w/exertion, Wheezing, Hemoptysis, Pleuritic Pain, Sputum , Other. Cardiovascular Denies: Chest Pain, Palpitations, Orthopnea, PND, Edema, Light-headedness, Other. Gastrointestinal Denies: Nausea, Vomiting, Abdominal Pain, Diarrhea, Constipation, Melena, Hematochezia, Other. Genitourinary Denies: Dysuria, Frequency, Incontinence, Hematuria, Retention, Other. Musculoskeletal Denies: Neck Pain, Shoulder Pain, Arm Pain, Back Pain, Hand Pain, Leg Pain, Foot Pain, Other. Skin Denies: Rash, Lesions, Jaundice, Bruising, Other. Neurological Denies: Weakness, Numbness, Incoordination, Change in speech, Confusion, Seizures, Other. Physical Exam Vital Signs / I&Os Vital Signs Date Time Temp Pulse Resp B/P Pulse O2 O2 Flow FiO2 Ox Delivery Rate 05/05 1440 97.9 85 20 161/74 96 Room Air 05/05 1046 98.2 85 21 178/84 97 05/05 0825 Room Air 05/05 0619 98.2 102 21 176/95 96 Room Air 05/05 0307 98.1 85 18 152/63 96 Room Air 05/04 2234 98.1 75 18 148/74 96 Room Air 05/04 2050 Room Air 05/04 1950 98.1 79 16 132/62 98 Room Air I&O 05/04 0800 05/04 1600 05/05 0000 Intake Total 555 0 Output Total 700 525 500 Balance -700 30 -500 General Appearance Alert, Oriented X3, No acute distress HEENT Atraumatic, EOMI, Moist mucous membranes Lungs Clear to auscultation, Normal air movement Cardiovascular Regular rate and rhythm, Normal S1 and S2, No murmurs, gallops, rubs Abdomen Soft, No tenderness, No guarding, No rebound, No masses, No hepatosplenomegaly Extremities No edema, Normal pulses, No tenderness, Strength = upper ext's, Strength = lower ext's, Vinh's sign negative Skin No Breakdown, No Significant Lesions Neurological Normal tone, Sensation intact, Reflexes 2+ and equal, Strength 5/5 x4 ext's, No lateralizing signs Psych/Mental Status Mood normal, Confused LAB Results Laboratory Tests 05/05 0630 Chemistry Plasma Sodium (136 - 145 mmol/L) 145 Plasma Potassium (3.5 - 5.1 mmol/L) 3.7 Plasma Chloride (98 - 107 mmol/L) 108 CO2 (Enzymatic) (21 - 32 mmol/L) 26 BUN (7 - 18 mg/dL) 13 Creatinine (0.6 - 1.3 mg/dL) 1.0 Est GFR ( Amer) (mL/min) >60 Est GFR (Non-Af Amer) (mL/min) 56.99 Glucose (70 - 110 mg/dL) 83 Plasma Calcium (8.5 - 10.1 mg/dL) 8.4 Total Bilirubin (0.0 - 1.0 mg/dL) 0.3 AST (15 - 37 U/L) 87 ALT (12 - 78 U/L) 43 Alkaline Phosphatase (46 - 116 U/L) 111 Total Protein (6.4 - 8.2 g/dL) 6.4 Albumin (3.3 - 5.0 g/dL) 2.3 Hematology WBC (4.5 - 11.5 K/uL) 11.9 RBC (4.00 - 5.20 M/uL) 3.45 Hgb (12.0 - 16.0 gm/dL) 10.2 Hct (36.0 - 46.0 %) 31.4 MCV (80 - 100 fL) 91 MCH (26 - 34 pg) 30 RDW (11.6 - 14.8 %) 16.1 Neut % (Auto) (50 - 75 %) 72.1 Lymph % (Auto) (25 - 40 %) 21.2 [place] % (Auto) (3 - 14 %) 5.8 Eos % (Auto) (0 - 4 %) 0.7 Baso % (Auto) (0 - 2 %) 0.2 Plt Count, EDTA (150 - 400 K/uL) 444 PUBS MCHC (31 - 37 g/dL) 32 Assessment and Plan Problem List 1. Diverticulitis of intestine with perforation with bleeding Plan - evidence of diverticulitis with bladder compression - will continue with cipro and flagyl - will start diet today and if patient is able to tolerate it will decide about possible discharge - will continue to monitor blood work 2. Anemia Plan - secondary to diverticulitis - no need for a transfusion 3. Hypertension Plan will resume home medication of HCTZ 25 mg daily
[2016-05-05 18:27] VITALS: BP 158/89
[2016-05-05 23:10] VITALS: BP 125/69
[2016-05-06 02:44] VITALS: BP 125/69; BP 160/89
[2016-05-06 06:36] VITALS: BP 193/70
[2016-05-06 08:02] VITALS: BP 147/89
[2016-05-06] MEDS ORDERED: FLORANE1 PO (09:58)
[2016-05-06] MEDS ORDERED: CIPROFLOXACIN500 M1 PO (09:58)
[2016-05-06] MEDS ORDERED: FLAGYL500 MG PO (09:59)
--- NOTE | 2016-05-06 10:02 | Provider's Discharge Care Plan ---
Problem, Goal, Plan Problem List 1. Diverticulitis of intestine with perforation with bleeding Instructions: - follow up with teller manager as an out patient - obtain referral for surgeon for possible sigmoid resection - take antibioitics and probiotics as prescribed - liquid and semi solid food only
--- NOTE | 2016-05-06 10:02 | Provider's Discharge Care Plan ---
Problem, Goal, Plan Problem List 1. Diverticulitis of intestine with perforation with bleeding Instructions: - follow up with aquaculture director as an out patient - obtain referral for surgeon for possible sigmoid resection - take antibioitics and probiotics as prescribed - liquid and semi solid food only
--- NOTE | 2016-05-06 10:03 | Discharge Summary ---
Discharge Summary Report Admit Date 05/03/16 Discharge Date 05/06/16 Admission Diagnosis diverticulitis with microperforation Discharge Diagnosis diverticulitis with microperforation and bladder compression Brief History Patient is a 80 year old female with a pmh of hypertension, diverticulitis that is presenting with a vague feeling of general body swelling and malaise. Patient has been dealing with the recent of her , patient has been traveling back and forth from [place] to [place] to arrange for the . Patient during this time was under a great deal of stress and had difficulty urinating lately. Patient went to an urgent care center for possible UTI and was prescribed antibiotics. Patient took the antibiotics and the next day had feeling or pruritis and generalized swelling. Patient came to the ER under the impression she had an allergic reaction. Patient was evaluated in the ER and the patient had various tests done including a ct scan of the abdomen. Patient was found to have diverticulitis with micro perforations and blood in the pelvic recess. Patients diverticulitis was seen to be causing compression like symptoms on the patients bladder which in turn may be causing this patients bladder dysfunction. Patient will be admitted for diverticulitis. Hospital Course Patient was admitted seen to have diverticulitis with micro perforations and blood within the pelvic recess. Patient additionally seen to have inflammation of the sigmoid with compression of the bladder. Patient as a result had hydronephrosis with preserved renal function. Patient was treated with IV cipro and flagyl and her white blood cell count came down appropriately. Patient was able to tolerate a clear liquid diet and she was seen by the general surgeons. Patient was told that she would need to see a internet network specialist upon discharge and would ultimately need a colorectal surgeon to correct this problem. Patient is otherwise stable for discharge. Patient will continue with antibiotics, and see a internet network specialist and surgeon. Patient will continue with low impact diet which will include primarily clears and semi solids. Patient understands plan and will comply. General Appearance Alert, Oriented X3, No acute distress Lungs Clear to auscultation, Normal air movement Cardiovascular Normal S1, Normal S2, No murmurs Abdomen Soft, No tenderness Skin No Breakdown Lab/Imaging Laboratory Tests 05/06 0520 Chemistry Plasma Sodium (136 - 145 mmol/L) 142 Plasma Potassium (3.5 - 5.1 mmol/L) 3.6 Plasma Chloride (98 - 107 mmol/L) 106 CO2 (Enzymatic) (21 - 32 mmol/L) 25 BUN (7 - 18 mg/dL) 9 Creatinine (0.6 - 1.3 mg/dL) 0.9 Est GFR ( Amer) (mL/min) >60 Est GFR (Non-Af Amer) (mL/min) >60 Glucose (70 - 110 mg/dL) 82 Plasma Calcium (8.5 - 10.1 mg/dL) 8.2 Total Bilirubin (0.0 - 1.0 mg/dL) 0.3 AST (15 - 37 U/L) 59 ALT (12 - 78 U/L) 36 Alkaline Phosphatase (46 - 116 U/L) 100 Total Protein (6.4 - 8.2 g/dL) 6.0 Albumin (3.3 - 5.0 g/dL) 2.1 Hematology WBC (4.5 - 11.5 K/uL) 8.7 RBC (4.00 - 5.20 M/uL) 3.35 Hgb (12.0 - 16.0 gm/dL) 9.9 Hct (36.0 - 46.0 %) 30.3 MCV (80 - 100 fL) 90 MCH (26 - 34 pg) 29 RDW (11.6 - 14.8 %) 15.7 Neut % (Auto) (50 - 75 %) 70.0 Lymph % (Auto) (25 - 40 %) 20.1 [place] % (Auto) (3 - 14 %) 7.5 Eos % (Auto) (0 - 4 %) 1.8 Baso % (Auto) (0 - 2 %) 0.6 Plt Count, EDTA (150 - 400 K/uL) 427 PUBS MCHC (31 - 37 g/dL) 33 Discharge Instructions/Meds - finish course of antibiotics - c/w home medications - only consume clears and semi solids - be seen by gastroenterology and eventually surgery
--- NOTE | 2016-05-06 11:13 | NUR ---
A/OX3, NO C/O DISCOMFORT, AMBULATING MADRID WITHOUT PROBLEM, D/C INSTRUCTIONS GONE OVER WITH SON AND PATIENT, ESCORTED OUT IN W/C.
== END 2016-05-06 10:30 | disposition home or self-care (01) | DRG 378 ==
LOC: ED SRH 09:19 → TRANS SRH 17:41 → ACUTE2 SRH 18:50
PROVIDERS: ADMIT Emergency Medicine
DX: K57.21 Diverticulitis of large intestine with perforation and abscess with bleeding (principal); N13.5 Crossing vessel and stricture of ureter without hydronephrosis; R30.0 Dysuria; D50.0 Iron deficiency anemia secondary to blood loss (chronic); I11.0 Hypertensive heart disease with heart failure; I50.9 Heart failure, unspecified
CPT/HCPCS: 81460; 90004; 90074; 90100; 90469; 90616; 91320; 91556; 92031; 92235; 92530; 92610; 92720; 93004; 93140; 94060; 95059